=== PATIENT | male | born 1935 | race African-American/Black ===

== ENCOUNTER 2022-06-10 12:34 | Emergency (ER) | payer MEDICARE ==
[2022-06-10 14:38] LABS: ALT (SGPT) 31 U/L (8-55); AST (SGOT) 37 U/L (5-34); Albumin 2.9 g/dL (3.4-4.8); Alkaline Phosphatase 80 U/L (40-110); Anion Gap 10 mmol/L (10-20); BUN (Urea Nitrogen) 32 mg/dL (8.4-25.7); Bilirubin, Total 1.8 mg/dL (0.2-1.2); Calc. Creatinine Clearance 0 mL/min (70-130); Calcium 8.5 mg/dL (7.8-10.44); Carbon Dioxide 33 mmol/L (23-31); Chloride 95 mmol/L (98-107); Estimated GFR 85; Globulin 3.2 g/dL (2.4-3.5); Glucose 133 mg/dL (83-110); Lipase 16 U/L (8-78); Protein, Total 6.1 g/dL (5.8-8.1); Sodium 134 mmol/L (136-145)
[2022-06-10 14:46] LABS: Hemoglobin 9.8 g/dL (14.0-18.0); Mean Corpuscular HGB CONC 31.6 g/dL (32.0-36.0); Platelet Count 299 thou/uL (130-400); RBC Distribution Width 12.6 % (11.5-14.5); Red Blood Cell (RBC) Count 2.87 mill/uL (4.70-6.10); White Blood Cell (WBC) Count 14.6 thou/uL (4.8-10.8)
[2022-06-10 15:04] LABS: Bacteria/HPF 1+ HPF (None Seen); Bilirubin Negative (Negative); Blood, Urine 1+ (Negative); Clarity Clear (Clear); Glucose, Urine (Dipstick) Normal (Negative); Ketone, Urine Negative (Negative); Leukocyte 250 Leu/uL (Negative); Nitrite Negative (Negative); Protein, Urine (Dipstick) Negative (Neg-Trace); Specific Gravity, Urine 1.013 (1.002-1.036); Squamous Epithelial None Seen HPF (0-3); Urobilinogen Normal mg/dL (Less than 2); pH, Urine 6.5 (5.0-9.0)
[2022-06-10 15:48] LABS: #Lymphocytes 0.9 thou/uL (1.20-3.40); #Monocytes 1.5 thou/uL (0.11-0.59); #Neutrophils 12.2 thou/uL (1.40-6.50); %Basophils 0.3 % (0.0-1.0); %Eosinophils 0.2 % (0.0-10.0); %Lymphocytes 6.1 % (21.0-51.0); %Neutrophils 83.5 % (42.0-75.0)
[2022-06-10 15:49] LABS: Lymphocytes 4 % (21-51); MDiff Complete? YES; Macrocytosis SLIGHT = 6-15 cells (100X) (0-5/hpf); Monocytes 7 % (0-10); Neutrophil 89 % (42-75); Platelet Morphology Comment Appears Adequate
== END 2022-06-10 19:42 | disposition home or self-care (01) ==
LOC: ERS 12:34
DX: Z46.59 Encounter for fitting and adjustment of other gastrointestinal appliance and device (principal); L89.311 Pressure ulcer of right buttock, stage 1; L89.321 Pressure ulcer of left buttock, stage 1; L89.891 Pressure ulcer of other site, stage 1; I50.9 Heart failure, unspecified; Z79.01 Long term (current) use of anticoagulants; Z79.899 Other long term (current) drug therapy; Z86.73 Personal history of transient ischemic attack (TIA), and cerebral infarction without residual deficits
CPT/HCPCS: 71045; 74018; 74177; 80053; 81003; 81015; 83605; 83690; 85025; 87040; 87086

== ENCOUNTER 2022-11-27 11:24 | Emergency (ER) | payer MEDICARE ==
[2022-11-27] MEDS ORDERED: GASTROGRAFIN 30 ML BOT ONE (13:56)
== END 2022-11-27 13:49 | disposition home or self-care (01) ==
LOC: ERS 11:24
DX: K94.23 Gastrostomy malfunction (principal); I50.9 Heart failure, unspecified; Z79.899 Other long term (current) drug therapy; Z79.01 Long term (current) use of anticoagulants
CPT/HCPCS: 74018; Q9963

== ENCOUNTER 2022-12-01 12:52 | Outpatient (CLI) | payer MEDICARE ==
[~2022-12-01 12:52] MED LIST: Iopamidol 370 76% 100 ML VIAL ONE
== END 2022-12-01 12:53 | disposition home or self-care (01) ==
LOC: CT 12:52
PROVIDERS: ATTEND Physician Assistant Medical
DX: K94.20 Gastrostomy complication, unspecified (principal); R13.12 Dysphagia, oropharyngeal phase; R10.13 Epigastric pain; J94.2 Hemothorax; K80.20 Calculus of gallbladder without cholecystitis without obstruction; K59.00 Constipation, unspecified
CPT/HCPCS: 74177; 82565; Q9967

== ENCOUNTER 2024-02-01 00:25 | Inpatient (IN) | payer MEDICARE ==
[2024-02-01 01:57] VITALS: BMI 23.2
[2024-02-01] MEDS ORDERED: Ondansetron ODT 4 MG TAB PO PRN (02:36)
[2024-02-01] MEDS ORDERED: Ondansetron PF 4 MG/2 ML Vial IVP PRN (02:36)
[2024-02-01 04:25] LABS: Hematocrit 34.8 % (42.0-52.0); Mean Corpuscular HGB CONC 31.6 g/dL (32.0-36.0); Mean Corpuscular Hemoglobin 32.6 pg (27.0-31.0); Mean Corpuscular Volume 103.3 fL (78.0-98.0); Mean Platelet Volume 11.5 fL (7.4-10.4); Platelet Count 282 10x3/uL (130-400); RBC Distribution Width 11.9 % (11.5-14.5); Red Blood Cell (RBC) Count 3.37 mill/uL (4.70-6.10)
[2024-02-01 04:36] LABS: Anion Gap 9 mmol/L (10-20); BUN (Urea Nitrogen) 22 mg/dL (8.4-25.7); Calc. Creatinine Clearance 94 mL/min (70-130); Calcium 8.5 mg/dL (7.8-10.44); Carbon Dioxide 29 mmol/L (23-31); Chloride 105 mmol/L (98-107); Estimated GFR 91; Glucose 109 mg/dL (83-110); Potassium 4.2 mmol/L (3.5-5.1); Sodium 139 mmol/L (136-145)
[2024-02-01 04:52] LABS: Band 1 % (5-11); Hypochromia SLIGHT = 6-15 cells HPF (0-5); Lymphocytes 1 % (21-51); Macrocytosis SLIGHT = 6-15 cells HPF (0-5); Monocytes 3 % (0-10); Neutrophil 94 % (42-75); Platelet Adequacy Comment Platelets Normal; Polychromasia SLIGHT = 2-3 cells HPF (0-2)
[2024-02-01] MEDS: Acetaminophen 650 MG Suppository PR PRN (05:51)
[2024-02-01] MEDS: DAPTOmycin 500 MG VIAL SLOW IVP SCH (07:25)
[2024-02-01] MEDS: Cefepime 2 GM in Sodium Chloride 0.9% 100 ML IVPB SCH (08:51)
[2024-02-01] MEDS: Sodium Chloride 0.9% 500 ML IV SCH (09:24)
[2024-02-01] MEDS: DAPTOmycin 500 MG in Sodium Chloride 0.9% 50 ML IVPB SCH (09:37)
[2024-02-01] MEDS: Azithromycin 500 MG in Sodium Chloride 0.9% 250 ML 250 ML IVPB SCH (09:37)
[2024-02-01 13:02] LABS: Legionella Urinary Ag Negative (Negative); Strep pneumo Urine Ag NEGATIVE (NEGATIVE)
[2024-02-01 13:16] LABS: Influenza A by NAA Not Detected (NotDetected); Influenza B by NAA Not Detected (NotDetected); SARS-CoV-2 NAA Rapid Test Not Detected (NotDetected)
[2024-02-01] MEDS: Sodium Chloride 0.9% 1,000 ML IV SCH (13:31)
[2024-02-01] MEDS: Meropenem 1 GM in Sodium Chloride 0.9% 100 ML IVPB SCH ×2 (13:54→23:39)
[2024-02-01] MEDS: Vancomycin (BATCH) 2 GM in Premix 1 BAG IVPB SCH (13:58)
[2024-02-01] MEDS ORDERED: Meropenem 2 GM in Sodium Chloride 0.9% 100 ML IVPB SCH (14:00)
[2024-02-01 15:37] VITALS: BMI 23.2
[2024-02-02 09:04] LABS: #Basophils 0.05 10x3/uL (0.0-0.2); %Basophils 0.4 % (0.0-1.0); %Eosinophils 1.8 % (0.0-10.0); %Lymphocytes 10.8 % (21.0-51.0); %Monocytes 6.6 % (0.0-10.0); %Neutrophils 79.9 % (42.0-75.0); Hematocrit 30.5 % (42.0-52.0); Hemoglobin 9.3 g/dL (14.0-18.0); Mean Corpuscular HGB CONC 30.5 g/dL (32.0-36.0); Mean Corpuscular Hemoglobin 33.3 pg (27.0-31.0); Mean Corpuscular Volume 109.3 fL (78.0-98.0); Mean Platelet Volume 11.6 fL (7.4-10.4); Platelet Count 233 10x3/uL (130-400); RBC Distribution Width 11.9 % (11.5-14.5); Red Blood Cell (RBC) Count 2.79 mill/uL (4.70-6.10)
[2024-02-02] MEDS: LEVOMEFOLATE PO SCH (09:22)
[2024-02-02] MEDS: Atorvastatin Calcium 20 MG TAB PO SCH (09:22)
[2024-02-02] MEDS: Apixaban 5 MG TAB PO SCH ×2 (09:22→21:40)
[2024-02-02] MEDS: Pantoprazole DR 40 MG TAB PO SCH (09:22)
[2024-02-02] MEDS: CURCUMIN PO SCH (09:22)
[2024-02-02] MEDS: Vancomycin (BATCH) 1.25 GM in Premix 1 BAG IVPB SCH (09:22)
[2024-02-02] MEDS: CYANOCOBALAMIN PO SCH (09:22)
[2024-02-02 09:55] LABS: Vancomycin, Random 12.5 ug/mL (See Comment)
[2024-02-02 10:01] LABS: Anion Gap 14 mmol/L (10-20); BUN (Urea Nitrogen) 19 mg/dL (8.4-25.7); Calc. Creatinine Clearance 106 mL/min (70-130); Calcium 8.2 mg/dL (7.8-10.44); Carbon Dioxide 26 mmol/L (23-31); Chloride 111 mmol/L (98-107); Estimated GFR 95; Glucose 83 mg/dL (83-110); Potassium 3.9 mmol/L (3.5-5.1); Sodium 147 mmol/L (136-145)
[2024-02-02] MEDS: Acetaminophen 325 MG TAB PO PRN (13:22)
[2024-02-02 19:07] LABS: Bacteria/HPF 2+ HPF (None Seen); Bilirubin Negative (Negative); Blood, Urine 3+ (Negative); Clarity Turbid (Clear); Glucose, Urine (Dipstick) Normal (Negative); Ketone, Urine 20 mg/dL (Negative); Leukocyte 250 Leu/uL (Negative); Nitrite Negative (Negative); Protein, Urine (Dipstick) 20 mg/dL (Neg-Trace); RBC/HPF Greater than 50 HPF (0-3); Specific Gravity, Urine 1.021 (1.002-1.036); Squamous Epithelial 0-3 HPF (0-3); Urobilinogen Normal mg/dL (Less than 2); WBC/HPF 21-50 HPF (0-3); pH, Urine 5.5 (5.0-9.0)
[2024-02-02 19:57] LABS: #Basophils 0.05 10x3/uL (0.0-0.2); %Basophils 0.3 % (0.0-1.0); %Eosinophils 1.3 % (0.0-10.0); %Lymphocytes 8.3 % (21.0-51.0); %Monocytes 4.9 % (0.0-10.0); %Neutrophils 84.5 % (42.0-75.0); Hematocrit 33.5 % (42.0-52.0); Hemoglobin 10.2 g/dL (14.0-18.0); Mean Corpuscular HGB CONC 30.4 g/dL (32.0-36.0); Mean Corpuscular Hemoglobin 32.7 pg (27.0-31.0); Mean Corpuscular Volume 107.4 fL (78.0-98.0); Mean Platelet Volume 11.7 fL (7.4-10.4); Platelet Count 276 10x3/uL (130-400); Red Blood Cell (RBC) Count 3.12 mill/uL (4.70-6.10)
[2024-02-03 05:46] LABS: #Basophils 0.04 10x3/uL (0.0-0.2); %Basophils 0.3 % (0.0-1.0); %Lymphocytes 10.2 % (21.0-51.0); %Monocytes 6.7 % (0.0-10.0); %Neutrophils 80.3 % (42.0-75.0); Hematocrit 30.3 % (42.0-52.0); Hemoglobin 9.5 g/dL (14.0-18.0); Mean Corpuscular HGB CONC 31.4 g/dL (32.0-36.0); Mean Corpuscular Volume 105.2 fL (78.0-98.0); Mean Platelet Volume 11.9 fL (7.4-10.4); Platelet Count 278 10x3/uL (130-400); RBC Distribution Width 11.9 % (11.5-14.5); Red Blood Cell (RBC) Count 2.88 mill/uL (4.70-6.10)
[2024-02-03 06:10] LABS: Vancomycin, Random 12.9 ug/mL (See Comment)
[2024-02-03 06:22] LABS: ALT (SGPT) Less than 5 U/L (8-55); AST (SGOT) 9 U/L (5-34); Alkaline Phosphatase 49 U/L (40-110); Anion Gap 10 mmol/L (10-20); BUN (Urea Nitrogen) 20 mg/dL (8.4-25.7); Bilirubin, Total 0.6 mg/dL (0.2-1.2); Calc. Creatinine Clearance 110 mL/min (70-130); Calcium 8.1 mg/dL (7.8-10.44); Carbon Dioxide 29 mmol/L (23-31); Chloride 108 mmol/L (98-107); Estimated GFR 96; Globulin 2.9 g/dL (2.4-3.5); Glucose 90 mg/dL (83-110); Protein, Total 4.9 g/dL (5.8-8.1); Sodium 143 mmol/L (136-145)
[2024-02-03] MEDS: Tamsulosin HCl 0.4 MG CAP PO SCH (08:47)
[2024-02-03] MEDS: Sotalol HCl 80 MG TAB PO SCH (08:47)
[2024-02-03] MEDS: Furosemide 40 MG TAB PO SCH (08:47)
[2024-02-03] MEDS ORDERED: GASTROGRAFIN 30 ML BOT ONE (11:02)
[2024-02-04 06:05] LABS: #Basophils 0.04 10x3/uL (0.0-0.2); %Basophils 0.4 % (0.0-1.0); %Eosinophils 2.1 % (0.0-10.0); %Lymphocytes 15.8 % (21.0-51.0); %Monocytes 7.6 % (0.0-10.0); %Neutrophils 73.5 % (42.0-75.0); Hematocrit 32.7 % (42.0-52.0); Hemoglobin 10.4 g/dL (14.0-18.0); Mean Corpuscular HGB CONC 31.8 g/dL (32.0-36.0); Mean Corpuscular Hemoglobin 32.3 pg (27.0-31.0); Mean Corpuscular Volume 101.6 fL (78.0-98.0); Mean Platelet Volume 11.8 fL (7.4-10.4); Platelet Count 301 10x3/uL (130-400); RBC Distribution Width 11.8 % (11.5-14.5); Red Blood Cell (RBC) Count 3.22 mill/uL (4.70-6.10)
[2024-02-04 06:19] LABS: ALT (SGPT) Less than 5 U/L (8-55); AST (SGOT) 12 U/L (5-34); Albumin 2.2 g/dL (3.4-4.8); Alkaline Phosphatase 49 U/L (40-110); Anion Gap 12 mmol/L (10-20); BUN (Urea Nitrogen) 15 mg/dL (8.4-25.7); Bilirubin, Total 0.7 mg/dL (0.2-1.2); Calc. Creatinine Clearance 108 mL/min (70-130); Calcium 8.7 mg/dL (7.8-10.44); Carbon Dioxide 29 mmol/L (23-31); Chloride 104 mmol/L (98-107); Estimated GFR 95; Globulin 3.6 g/dL (2.4-3.5); Glucose 87 mg/dL (83-110); Potassium 3.6 mmol/L (3.5-5.1); Protein, Total 5.8 g/dL (5.8-8.1)
[2024-02-04 06:33] LABS: Sodium 141 mmol/L (136-145)
[2024-02-04 12:01] VITALS: BP 105/66; TEMP 98.1
== END 2024-02-04 16:19 | disposition home or self-care (01) | DRG 871 ==
LOC: T4-B 01:22 → OBSVTOIN 02:36
PROVIDERS: ADMIT Student in an Organized Health Care Education/Training Program; ATTEND Family Medicine
DX: A41.1 Sepsis due to other specified staphylococcus (principal); G93.41 Metabolic encephalopathy; J18.9 Pneumonia, unspecified organism; N39.0 Urinary tract infection, site not specified; Z66 Do not resuscitate; A41.51 Sepsis due to Escherichia coli [E. coli]; I48.91 Unspecified atrial fibrillation; K94.29 Other complications of gastrostomy; I50.9 Heart failure, unspecified; R13.10 Dysphagia, unspecified; R62.7 Adult failure to thrive; I95.9 Hypotension, unspecified; R31.9 Hematuria, unspecified; Z86.73 Personal history of transient ischemic attack (TIA), and cerebral infarction without residual deficits; Z88.2 Allergy status to sulfonamides; Z88.1 Allergy status to other antibiotic agents; Z88.8 Allergy status to other drugs, medicaments and biological substances; Z79.899 Other long term (current) drug therapy; Z68.23 Body mass index [BMI] 23.0-23.9, adult; Z99.3 Dependence on wheelchair
CPT/HCPCS: 36415; 71045; 74150; 80048; 80053; 80202; 81001; 82550; 83880; 84145; 85025; 87070; 87081; 87205; 87449; 87899; 97139; J0456; J0692; J0878; J2185; J3370; J3490; J7030; J7050; Q9963

== ENCOUNTER 2024-02-09 05:06 | Inpatient (IN) | payer MEDICARE ==
[2024-02-09 06:05] LABS: #Basophils 0.05 10x3/uL (0.0-0.2); %Basophils 0.3 % (0.0-1.0); %Eosinophils 0.9 % (0.0-10.0); %Lymphocytes 11.5 % (21.0-51.0); %Monocytes 5.5 % (0.0-10.0); %Neutrophils 81.2 % (42.0-75.0); Hematocrit 35.6 % (42.0-52.0); Hemoglobin 11.1 g/dL (14.0-18.0); Mean Corpuscular HGB CONC 31.2 g/dL (32.0-36.0); Mean Corpuscular Hemoglobin 33.3 pg (27.0-31.0); Mean Corpuscular Volume 106.9 fL (78.0-98.0); Mean Platelet Volume 12.1 fL (7.4-10.4); Platelet Count 298 10x3/uL (130-400); RBC Distribution Width 12.7 % (11.5-14.5); Red Blood Cell (RBC) Count 3.33 mill/uL (4.70-6.10)
[2024-02-09] MEDS ORDERED: Cefepime 2 GM VIAL ONE (06:23)
[2024-02-09] MEDS ORDERED: Dexamethasone 10 MG/ML VIAL ONE (06:23)
[2024-02-09] MEDS ORDERED: Magnesium 2 GM/50 ML BAG (IN WATER) ONE (06:23)
[2024-02-09 07:06] LABS: Troponin I Less than 0.010 ng/mL (< 0.028)
[2024-02-09 07:06] LABS: ALT (SGPT) 6 U/L (8-55); AST (SGOT) 15 U/L (5-34); Albumin 2.6 g/dL (3.4-4.8); Alkaline Phosphatase 49 U/L (40-110); Anion Gap 11 mmol/L (10-20); BUN (Urea Nitrogen) 21 mg/dL (8.4-25.7); Bilirubin, Total 0.7 mg/dL (0.2-1.2); Calc. Creatinine Clearance 0 mL/min (70-130); Calcium 9.1 mg/dL (7.8-10.44); Carbon Dioxide 31 mmol/L (23-31); Chloride 102 mmol/L (98-107); Estimated GFR 89; Globulin 3.8 g/dL (2.4-3.5); Glucose 102 mg/dL (83-110); Lipase 42 U/L (8-78); Protein, Total 6.4 g/dL (5.8-8.1); Sodium 140 mmol/L (136-145)
[2024-02-09 07:12] LABS: Influenza A by NAA Not Detected (NotDetected); Influenza B by NAA Not Detected (NotDetected); SARS-CoV-2 NAA Rapid Test Not Detected (NotDetected)
[2024-02-09] MEDS ORDERED: Albuterol 2.5 MG (0.5 mL) NEB ONE (07:36)
[2024-02-09] MEDS ORDERED: Ipratropium/Albuterol 3 ML NEB ONE ×2 (07:36→13:30)
[2024-02-09 07:44] LABS: Actual Bicarbonate (HCO3a) 28.5 mEq/L (22-28); Analyzer IN Cardio ER; Base Excess (BEa) 3.1 mEq/L (-2.0 to +3.0); CO2 Tension 47.5 mmHg (35.0-45.0); Carboxyhemoglobin (COHb) 0.5 gm% (0.0-3.0); Hematocrit-ABG 31 % (42.0-52.0); Hemoglobin (Hb) 10.7 g/dL (14.0-18.0); O2 Tension (PaO2), arterial 61.9 mmHg (> 60.0); Potassium - ABG Lab 3.74 mmol/L (3.70-5.30); pH, Arterial 7.396 (7.35-7.45)
[2024-02-09 07:46] LABS: ALV-art Gradient 28.455 mmHg (0-20); Puncture Site RRA
[2024-02-09] MEDS ORDERED: Ondansetron PF 4 MG/2 ML Vial IVP PRN (07:46)
[2024-02-09] MEDS ORDERED: Senokot S 8.6-50 MG TAB PO PRN (07:46)
[2024-02-09] MEDS ORDERED: Acetaminophen 325 MG TAB PO PRN (07:46)
[2024-02-09] MEDS ORDERED: Ipratropium/Albuterol 3 ML NEB NEB PRN (07:51)
[2024-02-09] MEDS ORDERED: guaiFENesin ER 600 MG TAB PO SCH (09:00)
[2024-02-09] MEDS ORDERED: Vancomycin 1 GM in Premix 1 BAG IVPB SCH (09:00)
[2024-02-09] MEDS ORDERED: Piperacillin/Tazobactam 3.375 GM VIAL ONE (11:08)
[2024-02-09] MEDS ORDERED: Enoxaparin 40 MG (0.4 mL) SYRINGE ONE (11:09)
[2024-02-09] MEDS ORDERED: Famotidine/PF 20 mg/2ml Vial ONE (11:09)
[2024-02-09] MEDS ORDERED: Sodium Chloride 0.9% 100 ML ONE (11:11)
[2024-02-09] MEDS: Enoxaparin 40 MG (0.4 mL) SYRINGE SC SCH (11:14)
[2024-02-09] MEDS: Famotidine/PF 20 mg/2ml Vial SLOW IVP SCH (11:15)
[2024-02-09] MEDS: Piperacillin/Tazobactam 3.375 GM in Sodium Chloride 0.9% 100 ML IVPB SCH (11:15)
[2024-02-09] MEDS: Sodium Chloride 0.9% 1,000 ML IV SCH (11:16)
[2024-02-09] MEDS: Ipratropium/Albuterol 3 ML NEB NEB SCH (13:38)
[2024-02-09 21:40] VITALS: BMI 23.2
[2024-02-09] MEDS: Vancomycin (BATCH) 1.25 GM in Premix 1 BAG IVPB SCH (22:41)
[2024-02-10] MEDS: Atorvastatin Calcium 20 MG TAB PER TUBE SCH
[2024-02-10] MEDS: Sotalol HCl 80 MG TAB PER TUBE SCH
[2024-02-10] MEDS: Apixaban 5 MG TAB PO SCH ×2 (00:01→10:26)
[2024-02-10 05:57] LABS: Bacteria/HPF None Seen HPF (None Seen); Bilirubin Negative (Negative); Blood, Urine Negative (Negative); CAUTI Indications for Culture Alt mental st,lethar; Clarity Clear (Clear); Glucose, Urine (Dipstick) Normal (Negative); Ketone, Urine 10 mg/dL (Negative); Leukocyte Negative Leu/uL (Negative); Nitrite Negative (Negative); Protein, Urine (Dipstick) Negative (Neg-Trace); RBC/HPF 0-3 HPF (0-3); Specific Gravity, Urine 1.021 (1.002-1.036); Squamous Epithelial None Seen HPF (0-3); Urobilinogen Normal mg/dL (Less than 2); WBC/HPF 0-3 HPF (0-3); pH, Urine 5.5 (5.0-9.0)
[2024-02-10 05:59] LABS: Urine Culture Reflex No No
[2024-02-10 06:24] LABS: Vancomycin, Random 26.1 ug/mL (See Comment)
[2024-02-10 06:29] LABS: ALT (SGPT) 8 U/L (8-55); AST (SGOT) 12 U/L (5-34); Albumin 2.4 g/dL (3.4-4.8); Alkaline Phosphatase 43 U/L (40-110); Anion Gap 11 mmol/L (10-20); BUN (Urea Nitrogen) 18 mg/dL (8.4-25.7); Bilirubin, Total 0.6 mg/dL (0.2-1.2); Calc. Creatinine Clearance 95 mL/min (70-130); Calcium 8.5 mg/dL (7.8-10.44); Carbon Dioxide 26 mmol/L (23-31); Chloride 106 mmol/L (98-107); Estimated GFR 91; Globulin 3.4 g/dL (2.4-3.5); Glucose 100 mg/dL (83-110); Protein, Total 5.8 g/dL (5.8-8.1); Sodium 139 mmol/L (136-145)
[2024-02-10 09:47] VITALS: BMI 23.2
[2024-02-10] MEDS: Metoclopramide HCl 10 MG TAB PO SCH (10:12)
[2024-02-10] MEDS: Tamsulosin HCl 0.4 MG CAP PO SCH (10:18)
[2024-02-10] MEDS: Pantoprazole DR 40 MG TAB PO SCH (10:18)
[2024-02-10] MEDS: Sotalol HCl 80 MG TAB PO SCH (10:18)
[2024-02-10] MEDS: Vancomycin (BATCH) 2 GM in Premix 1 BAG IVPB SCH (11:04)
[2024-02-10] MEDS: LevoFLOXacin 750 mg/D5W 750 MG in Premix 1 BAG IVPB SCH (11:04)
[2024-02-10] MEDS: Cefepime 2 GM in Sodium Chloride 0.9% 100 ML IVPB SCH (11:05)
[2024-02-10] MEDS: Dexamethasone 10 MG/ML VIAL SLOW IVP SCH (11:05)
[2024-02-10] MEDS: Magnesium 2 GM/50 ML(in water) 2 GM in Premix 1 BAG IVPB SCH (11:05)
[2024-02-10] MEDS: Vancomycin HCl 750 MG in Sodium Chloride 0.9% 250 ML 250 ML IVPB SCH (12:15)
[2024-02-10] MEDS: Lansoprazole 30 MG/10 ML UDCUP PER TUBE SCH (16:51)
[2024-02-10] MEDS: Atorvastatin Calcium 20 MG TAB PO SCH (20:51)
[2024-02-11 04:18] LABS: Hematocrit 30.5 % (42.0-52.0); Hemoglobin 9.6 g/dL (14.0-18.0); Mean Corpuscular HGB CONC 31.5 g/dL (32.0-36.0); Mean Corpuscular Hemoglobin 33.8 pg (27.0-31.0); Mean Corpuscular Volume 107.4 fL (78.0-98.0); Mean Platelet Volume 12.3 fL (7.4-10.4); Platelet Count 223 10x3/uL (130-400); RBC Distribution Width 12.8 % (11.5-14.5); Red Blood Cell (RBC) Count 2.84 mill/uL (4.70-6.10)
[2024-02-11 04:43] LABS: Anion Gap 11 mmol/L (10-20); BUN (Urea Nitrogen) 20 mg/dL (8.4-25.7); Calc. Creatinine Clearance 91 mL/min (70-130); Calcium 8.1 mg/dL (7.8-10.44); Carbon Dioxide 26 mmol/L (23-31); Chloride 105 mmol/L (98-107); Estimated GFR 90; Glucose 95 mg/dL (83-110); Potassium 3.7 mmol/L (3.5-5.1); Sodium 138 mmol/L (136-145)
[2024-02-11] MEDS: Lansoprazole 30 MG/10 ML UDCUP PER TUBE SCH (09:00)
[2024-02-11] MEDS: Ipratropium/Albuterol 3 ML NEB NEB SCH (12:41)
[2024-02-12] MEDS: Amoxicillin/Potassium Clav 875 MG TAB PO SCH (11:05)
[2024-02-13 09:13] VITALS: TEMP 97.9
[2024-02-13 15:28] VITALS: BP 147/65
== END 2024-02-13 17:10 | disposition home or self-care (01) | DRG 871 ==
LOC: ERS 05:06 → ERHOLD 09:52 → 2NO 15:17
PROVIDERS: ADMIT Family Medicine; ATTEND Internal Medicine
PROC: 4A133R1 Monitoring of Arterial Saturation, Peripheral, Percutaneous Approach (ICD-10-PCS; principal; 2024-02-09)
PROC: 3E03329 Introduction of Other Anti-infective into Peripheral Vein, Percutaneous Approach (ICD-10-PCS; 2024-02-09)
DX: A41.9 Sepsis, unspecified organism (principal); J18.9 Pneumonia, unspecified organism; J69.0 Pneumonitis due to inhalation of food and vomit; J96.01 Acute respiratory failure with hypoxia; R13.10 Dysphagia, unspecified; Z66 Do not resuscitate; I48.0 Paroxysmal atrial fibrillation; D64.9 Anemia, unspecified; N40.0 Benign prostatic hyperplasia without lower urinary tract symptoms; I69.391 Dysphagia following cerebral infarction; E87.6 Hypokalemia; E86.0 Dehydration; I50.9 Heart failure, unspecified; Z99.3 Dependence on wheelchair; Z88.2 Allergy status to sulfonamides; Z79.01 Long term (current) use of anticoagulants; Z88.8 Allergy status to other drugs, medicaments and biological substances; Z79.899 Other long term (current) drug therapy; Z87.440 Personal history of urinary (tract) infections; Z93.1 Gastrostomy status
CPT/HCPCS: 36415; 36600; 71045; 80048; 80053; 80202; 81001; 82805; 83605; 83690; 83880; 84145; 84484; 85025; 85027; 86141; 87040; 87081; 93005; 94640; J0692; J1100; J1650; J1956; J2543; J3370; J3475; J3490; J7050; J7611; J7620; S0028